=== PATIENT | female | born 1995 | race African-American/Black ===

== ENCOUNTER 2019-02-05 22:52 | Emergency (ER) | payer OTHER ==
[~2019-02-05] VITALS: Ht 175.3 cm; Wt 72.6 kg
[2019-02-05 23:25] LABS: INFLUENZA A ANTIGEN Negative (Negative); INFLUENZA B ANTIGEN Negative (Negative)
[2019-02-05] MEDS ORDERED: TYLENOL WITH CO1 TA1 PO (23:59)
[2019-02-05] MEDS ORDERED: TAMIFLU75 MG PO (23:59)
[2019-02-06 00:12] VITALS: BP 127/65
== END 2019-02-06 00:14 | disposition home or self-care (01) ==
LOC: M.ERS 22:52
PROVIDERS: Emergency Medicine
DX: B34.9 Viral infection, unspecified (principal)